=== PATIENT | female | born 1975 | race Asian ===

== ENCOUNTER 2022-03-31 10:01 | Emergency (ER) | payer OTHER ==
[~2022-03-31] VITALS: Ht 157.5 cm; Wt 73.0 kg
[2022-03-31] MEDS ORDERED: ATOR20TA86 PO (10:39)
[2022-03-31] MEDS ORDERED: MINO60SO50 TP (10:39)
[2022-03-31] MEDS ORDERED: BUSP10TA23 PO (10:39)
[2022-03-31] MEDS ORDERED: GABA-1181 PO (10:39)
[2022-03-31 11:03] LABS: BASOPHILS % (AUTO) 0.5 % (0.0-2.0); EOSINOPHILS % (AUTO) 1.5 % (1.0-6.0); HEMATOCRIT 40.6 % (36-46); HEMOGLOBIN 14.4 g/dL (12.0-16.0); LYMPHOCYTES # (AUTO) 1.1 K/uL (1.0-4.8); LYMPHOCYTES % (AUTO) 20.8 % (22.0-44.0); MEAN CORPUSCULAR HEMOGLOBIN 31.7 pg (26.0-34.0); MEAN CORPUSCULAR HGB CONC 35.4 G/dL (31.0-37.0); MEAN CORPUSCULAR VOLUME 90 fL (80-100); MONOCYTES # (AUTO) 0.4 K/uL (0.1-1.0); MONOCYTES % (AUTO) 7.1 % (2.0-9.0); NEUTROPHILS # (AUTO) 3.7 K/uL (1.8-7.7); NEUTROPHILS % (AUTO) 70.1 % (40.0-70.0); PLATELET COUNT (AUTO) 288 K/uL (150-450); RED BLOOD CELL COUNT(AUTO) 4.54 MIL/uL (4.00-5.20); RED CELL DISTRIBUTION WIDTH 12.4 % (11.5-14.5)
[2022-03-31 11:24] LABS: ALANINE AMINOTRANSFERASE 33 U/L (12-78); ALBUMIN 4.4 g/dL (3.4-5.0); ALKALINE PHOSPHATASE 58 U/L (46-116); ANION GAP 11 mmol/L (8-16); ASPARTATE AMINOTRANSFERASE 23 U/L (15-37); BILIRUBIN,TOTAL 0.9 mg/dL (0.1-1.0); CALCIUM, TOTAL 9.4 mg/dL (8.8-10.5); CARBON DIOXIDE 30 mmol/L (22-29); CHLORIDE 86 mmol/L (98-107); CREATININE 0.73 mg/dL (0.60-1.30); GLUCOSE,RANDOM 105 mg/dL (70-110); SODIUM SERUM 127 mmol/L (136-145); TOTAL PROTEIN, SERUM 7.8 g/dL (6.4-8.2); UREA NITROGEN, BLOOD 8 mg/dL (7-18)
[2022-03-31 11:28] LABS: GLOMERULAR FILTR. RATE CALC > 60 mL/min (>60); POTASSIUM 2.9 mmol/L (3.5-5.1)
[2022-03-31] MEDS ORDERED: CHLO25TA3 PO (11:31)
[2022-03-31] MEDS ORDERED: HYDR30CR3 TP (11:31)
[2022-03-31] MEDS ORDERED: NIZO2SH TP (11:31)
[2022-03-31] MEDS ORDERED: RUXO60CR TP (11:31)
[2022-03-31] MEDS ORDERED: MINO2.5 PO (11:31)
[2022-03-31] MEDS ORDERED: FLUO60SO10 TP (11:31)
[2022-03-31 13:27] VITALS: BP 150/91
[2022-03-31] MEDS ORDERED: LORA-1000 PO (13:52)
[2022-03-31] MEDS ORDERED: POTA8TAB72 PO (13:52)
[2022-03-31] MEDS ORDERED: POTASSIUM CHLORIDE 20 MEQ ER TABLET PO ONE (14:00)
== END 2022-03-31 14:20 | disposition home or self-care (01) ==
LOC: EMS 10:01 → EDBD 10:01 → EMS 14:20
DX: R07.89 Other chest pain (principal); E87.6 Hypokalemia; F41.9 Anxiety disorder, unspecified; I10 Essential (primary) hypertension; D25.9 Leiomyoma of uterus, unspecified; Z90.710 Acquired absence of both cervix and uterus
CPT/HCPCS: 71045; 80053; 84484; 84703; 85025; 85379; 93005; 99285; 36415-L1; 36415-TC